=== PATIENT | female | born 1980 | race Caucasian/White ===

== ENCOUNTER 2017-05-18 13:52 | Emergency (ER) | payer MEDICAID ==
[2017-05-18 14:06] VITALS: BMI 33.1
[2017-05-18] MEDS ORDERED: Sodium Chloride 0.9% 1,000 ML IV ONE (14:33)
--- NOTE | 2017-05-18 14:38 | C.PDOC ---
History Of Present Illness 37 y/o female 10 weeks presents to ED with complaints of vomiting since 05/16/17. Patient states she cannot hold anything down and was seen at [facility] but symptoms have not improved which prompted visit to ED today. Patient denies vaginal bleeding, fever, chills, diarrhea or any other complaints at this time. Patient LMP 03/03/17. Time Seen by Provider: 05/18/17 14:20 Chief Complaint (Nursing): GI Problem History Per: Patient History/Exam Limitations: no limitations Onset/Duration Of Symptoms: Days Current Symptoms Are (Timing): Still Present Quality Of Discomfort: denies: Cramping Associated Symptoms: Vomiting. denies: Fever, Chills, Nausea, Urinary Symptoms Past Medical History Reviewed: Historical Data, Nursing Documentation, Vital Signs Vital Signs: Last Vital Signs Temp 98.3 F 05/18/17 16:21 Pulse 71 05/18/17 16:21 Resp 18 05/18/17 16:21 BP 96/65 L 05/18/17 16:21 Pulse Ox 99 05/18/17 16:21 - Medical History PMH: Migraine Family History: States: No Known Family Hx - Social History Hx Tobacco Use: No Hx Alcohol Use: No Hx Substance Use: No - Immunization History Hx Tetanus Toxoid Vaccination: No Hx Influenza Vaccination: No Hx Pneumococcal Vaccination: No Review Of Systems Except As Marked, All Systems Reviewed And Found Negative. Constitutional: Negative for: Fever, Chills Gastrointestinal: Positive for: Vomiting. Negative for: Nausea, Diarrhea Genitourinary: Negative for: Dysuria, Vaginal Bleeding Skin: Negative for: Rash Physical Exam - Physical Exam Appears: Non-toxic, No Acute Distress Skin: Normal Color, Warm Head: Normacephalic Oral Mucosa: Moist Cardiovascular: Rhythm Regular, No Murmur Respiratory: Normal Breath Sounds, No Rales, No Rhonchi, No Wheezing Gastrointestinal/Abdominal: Tenderness (Lower abdominal Tenderness), No Guarding , No Rebound Extremity: Normal ROM, Capillary Refill (<2 seconds) Neurological/Psych: Oriented x3 ED Course And Treatment - Laboratory Results Result Diagrams: 05/18/17 15:02 05/18/17 15:02 Lab Interpretation: Normal Urine POC: Positive O2 Sat by Pulse Oximetry: 100 (RA) Pulse Ox Interpretation: Normal - CT Scan/US No standard instances Other Rad Studies (CT/US): Read By Radiologist, Radiology Report Reviewed CT/US Interpretation: FINDINGS: UTERUS: Gestational sac: Single intrauterine gestation. Heart rate: 158 bpm. age (Ultrasound estimated): 11 weeks and 1 day. Poppy-gestational hemorrhage: None. Date of delivery ( Ultrasound estimated) : 12/06/2017. Uterus measures 13.6 x 0.9 x 9.7 cm. Anteverted an enlarged. CERVIX: Long and closed. No cervical abnormality seen. RIGHT OVARY: Measures 3.3 x 2.4 x 3.6 cm. No mass lesion. Normal flow. There is a 2.5 cm corpus luteum cyst. LEFT OVARY: Measures 2.5 x 2.6 x 2.8 cm. No solid mass. Normal flow. FREE FLUID: None. OTHER FINDINGS: None. IMPRESSION: Single live intrauterine gestation with mean gestational age of 11 weeks and 1 day. The estimated date of delivery by ultrasound is 12/06/2017. The ultrasound dates correspond with the clinical dates. Progress Note: Treated with IVF NSS and zofran. On re-evaluation feeling better , abdomen soft Reassessment Condition: Improved Medical Decision Making Medical Decision Making: Plan: * Fluids * Zofran Disposition Counseled Patient/Family Regarding: Studies Performed, Diagnosis, Need For Followup, Rx Given - Disposition Referrals: [facility] [employer] [Outside] Disposition: HOME/ ROUTINE Disposition Time: 16:30 Condition: IMPROVED Additional Instructions: follow up with clinic Return to ED if any increase symptoms Prescriptions: Ondansetron ODT [Zofran ODT] 1 odt PO BID PRN #6 odt PRN Reason: Nausea/Vomiting Instructions: Hyperemesis Gravidarum (ED) - POA Present On Arrival: None - Clinical Impression Clinical Impression: Hyperemesis affecting , antepartum - Scribe Statement The provider has reviewed the documentation as recorded by the Luis Rob All medical record entries made by the Luis were at my direction and personally dictated by me. I have reviewed the chart and agree that the record accurately reflects my personal performance of the history, physical exam, medical decision making, and the department course for this patient. I have also personally directed, reviewed, and agree with the discharge instructions and disposition.
[2017-05-18] MEDS ORDERED: Sodium Chloride 0.9% 1,000 ML ONE (14:47)
[2017-05-18 15:00] LABS: HCG,QUALITATIVE URINE POSITIVE (NEGATIVE)
[2017-05-18 15:02] LABS: SQUAMOUS EPITHIAL 5 /hpf (0-5); URINE BACTERIA OCC (<OCC); URINE BILIRUBIN NEGATIVE (NEGATIVE); URINE BLOOD NEGATIVE (NEGATIVE); URINE CLARITY Hazy (Clear); URINE COLOR YELLOW (YELLOW); URINE GLUCOSE (UA) NORMAL (Normal); URINE LEUKOCYTE ESTERASE 1+ Leu/uL (Negative); URINE NITRATE NEGATIVE (NEGATIVE); URINE PROTEIN 1+ mg/dL (NEGATIVE); URINE UROBILINOGEN NORMAL mg/dL (0.2-1.0)
[2017-05-18 15:14] LABS: BASO % 0.4 % (0.0-2.0); EOS % 0.5 % (0.0-4.0); HEMOGLOBIN 11.3 g/dL (11.0-16.0); LYMPH # 1.5 K/uL (1.0-4.3); LYMPH % 20.9 % (20.0-40.0); MEAN CORPUSCULAR HEMOGLOBIN 22.2 pg (27.0-31.0); MEAN CORPUSCULAR HGB CONC 31.7 g/dL (33.0-37.0); MEAN PLATELET VOLUME 7.7 fL (7.2-11.7); MONO # 0.5 K/uL (0.0-0.8); MONO % 7.3 % (0.0-10.0); NEUT # 5.2 K/uL (1.8-7.0); NEUT % 70.9 % (50.0-75.0); NRBC % 0.1 % (0.0-2.0); RBC 5.08 Mil/uL (3.80-5.20); RED CELL DISTRIBUTION WIDTH 17.3 % (11.5-14.5); WHITE BLOOD COUNT 7.3 K/uL (4.8-10.8)
[2017-05-18 15:41] LABS: ALBUMIN 4.2 g/dL (3.5-5.0)
[2017-05-18 15:43] LABS: GFR AFRICAN-AMERICAN > 60; GFR NON-AFRICAN AMERICAN > 60
[2017-05-18 15:44] LABS: ALT/SGPT 20 U/L (9-52); AST/SGOT 33 U/L (14-36); BLOOD UREA NITROGEN 10 mg/dL (7-17); LIPASE 73 U/L (23-300)
[2017-05-18 15:45] LABS: CALCIUM 9.1 mg/dl (8.6-10.4)
--- NOTE | 2017-05-18 16:03 | US ---
PROCEDURE: OB Pelvic Ultrasound HISTORY: bleeding COMPARISON: None available. FINDINGS: UTERUS: Gestational sac: Single intrauterine gestation. Heart rate: 158 bpm. age (Ultrasound estimated): 11 weeks and 1 day Poppy-gestational hemorrhage: None. Date of delivery (Ultrasound estimated) : 12/06/2017 Uterus measures 13.6 x 0.9 x 9.7 cm. Anteverted an enlarged. CERVIX: Long and closed. No cervical abnormality seen. RIGHT OVARY: Measures 3.3 x 2.4 x 3.6 cm. No mass lesion. Normal flow. There is a 2.5 cm corpus luteum cyst. LEFT OVARY: Measures 2.5 x 2.6 x 2.8 cm. No solid mass. Normal flow. FREE FLUID: None. OTHER FINDINGS: None. IMPRESSION: Single live intrauterine gestation with mean gestational age of 11 weeks and 1 day. The estimated date of delivery by ultrasound is 12/06/2017. The ultrasound dates correspond with the clinical dates.
[2017-05-18 16:22] VITALS: BP 96/65; PULSE 71; RESP 18; TEMP 98.3
[2017-05-18 18:08] VITALS: O2SAT 100
== END 2017-05-18 16:50 | disposition home or self-care (01) ==
LOC: C.ER 13:52
DX: O21.0 Mild hyperemesis gravidarum (principal); Z3A.10 10 weeks gestation of pregnancy
CPT/HCPCS: 76801; 80053; 81001; 83690; 84702; 84703; 85025; 86850; 86900; 96361; 96374; 99284; J2405; J7040

== ENCOUNTER 2017-10-12 09:58 | Emergency (ER) | payer OTHER ==
--- NOTE | 2017-10-12 11:01 | OBHP ---
Datetime: 10/12/2017 10:57 IP Adm Impression: , intrauterine IP Chief Complaint Other: nst Admit Comment, IP Provider: at 31+weeks send from clinic for nst for ??. pt was havimg ctxs on the monitor but doesnot feel them,vb, no lof,+fm. pt has not eaten anything. obhx 1 x , 2 x sab pmh den med pnv all nkda psh de soch de ve closed a/p at 31+weeks ctxs/nst npo/ivf ua cont violette and efm cont close onser Pelvic Type - PN: Adequate Extremities - PN: Normal Abdomen - PN: Normal Back - PN: Normal Breast - PN: Normal Lungs - PN: Normal Heart - PN: Normal Thyroid - PN: Normal Neurologic - PN: Normal HEENT - PN: Normal General - PN: Normal FHR - Baseline A Provider: 140 Contraction Comments Provider: irrg EGA AdmitDate IP: 31.6 Vital Signs Provider: Reviewed; Within Normal Limits IP Chief Complaint: Other NICHD Variability Prov Fetus A: Moderate 6-25bpm NICHD Accel Fetus A IP Provider: 15X15 FHR Category Provider Fetus A: Category I Dilatation, Provider: 0 Effacement, Provider: 0 Station, Provider: -3 Genitourinary Exam: Normal DTRs - PN: Normal
[2017-10-12 11:02] VITALS: BMI 34.1
[2017-10-12] MEDS ORDERED: Lactated Ringer's 1,000 ML IV SCH (11:15)
[2017-10-12 11:30] LABS: URINE BILIRUBIN NEGATIVE (NEGATIVE); URINE BLOOD NEGATIVE (NEGATIVE); URINE COLOR Yellow (YELLOW); URINE GLUCOSE (UA) NORMAL (Normal); URINE KETONE NEGATIVE (NEGATIVE); URINE LEUKOCYTE ESTERASE NEG Leu/uL (Negative); URINE PROTEIN NEGATIVE (NEGATIVE); URINE UROBILINOGEN NORMAL mg/dL (0.2-1.0)
[2017-10-12 11:46] LABS: URINE BACTERIA OCC (<OCC); WBC URINE 1 /hpf (0-5)
--- NOTE | 2017-10-12 12:08 | OBDCSUM ---
Datetime: 10/12/2017 12:06 Discharged to, Provider: Home Follow up at, Provider: 2-3 Follow up in weeks, Provider: clinic Discharge Comment, Provider: dc home no sex po hyra f/u in clinic in 2-3 days Discharge Diagnosis Prov Other: nst 31week prtm ctxs Datetime: 10/12/2017 12:00 Discharged to, Provider: Other Disch Instr Activity: Normal activity Disch Instr Diet: Regular Discharge Time: 10/12/2017 12:01 Disch Referrals: None
--- NOTE | 2017-10-12 12:08 | OBHP ---
Datetime: 10/12/2017 12:05 Admit Comment, IP Provider: pt was examined at bed side ve closed /p iv fluid ua neg plan dc home no sex po hyra f/u in clinic in 2-3 days FHR - Baseline A Provider: 150 Contraction Comments Provider: none Vital Signs Provider: Reviewed; Within Normal Limits NICHD Variability Prov Fetus A: Moderate 6-25bpm NICHD Accel Fetus A IP Provider: 10X10 FHR Category Provider Fetus A: Category I Dilatation, Provider: 0 Effacement, Provider: 0 Station, Provider: -3
[2017-10-12 16:07] VITALS: BP 116/69; PULSE 86
== END 2017-10-12 12:03 | disposition home or self-care (01) ==
LOC: C.EROB 09:58
DX: Z36.89 Encounter for other specified antenatal screening (principal); O60.03 Preterm labor without delivery, third trimester; Z3A.31 31 weeks gestation of pregnancy
CPT/HCPCS: 81001; 99283; J7120

== ENCOUNTER 2017-10-24 08:57 | Emergency (ER) | payer OTHER ==
[2017-10-24 09:47] VITALS: BMI 34.9
[2017-10-24 10:28] LABS: URINE BILIRUBIN NEGATIVE (NEGATIVE); URINE BLOOD NEGATIVE (NEGATIVE); URINE COLOR Yellow (YELLOW); URINE GLUCOSE (UA) NORMAL (Normal); URINE KETONE NEGATIVE (NEGATIVE); URINE LEUKOCYTE ESTERASE 1+ Leu/uL (Negative); URINE PROTEIN NEGATIVE (NEGATIVE); URINE UROBILINOGEN NORMAL mg/dL (0.2-1.0)
[2017-10-24 10:56] LABS: RBC URINE < 1 /hpf (0-3); URINE BACTERIA MOD (<OCC)
[2017-10-24 10:57] LABS: WBC URINE 15 /hpf (0-5)
[2017-10-24] MEDS ORDERED: Betamethasone Soluspan 30 mg/5mL Inj Susp IM STA ×2 (11:00)
[2017-10-24 20:24] VITALS: BP 113/69; PULSE 93; O2SAT 97
== END 2017-10-24 16:00 | disposition home or self-care (01) ==
LOC: C.EROB 08:57
DX: O26.899 Other specified pregnancy related conditions, unspecified trimester (principal); R10.30 Lower abdominal pain, unspecified
CPT/HCPCS: 81001; 99283; J0702; J3105

== ENCOUNTER 2017-10-25 12:30 | Emergency (ER) | payer OTHER ==
[2017-10-24 09:47] VITALS: BMI 34.9
[2017-10-25] MEDS ORDERED: Betamethasone Soluspan 30 mg/5mL Inj Susp IM ONE (13:00)
--- NOTE | 2017-10-25 21:42 | OBHP ---
Datetime: 10/25/2017 12:42 IP Chief Complaint Other: celestone IP Admit Plan: Discharge home Admit Comment, IP Provider: patient with contraction here for celestone and nst NST reactive give celestone 12 mg imx1 contineu decreased activity follow up in clinic next week patient given labor precautions Extremities - PN: Normal Abdomen - PN: Normal Back - PN: Normal Lungs - PN: Normal Heart - PN: Normal Neurologic - PN: Normal General - PN: Normal EGA AdmitDate IP: 33.5 Vital Signs Provider: Reviewed; Within Normal Limits IP Chief Complaint: Other FHR Category Provider Fetus A: Category I Datetime: 10/24/2017 21:15 IP Adm Impression: , intrauterine ; No Active Labor Pelvic Type - PN: Adequate Breast - PN: Not Done Thyroid - PN: Not Done HEENT - PN: Normal Presentation-Admit: Vertex FHR - Baseline A Provider: 145 Membranes, Provider: Intact Contraction Comments Provider: 4-5 Comments, ACOG Physical Exam: Abdomen: Gravid. Soft. Non tender in all quadrants All other systems reviewed and are negative Gestation - Est Wks by US: 33w 4d NICHD Variability Prov Fetus A: Moderate 6-25bpm NICHD Accel Fetus A IP Provider: 15X15 NICHD Decel Fetus A IP Provider: None Dilatation, Provider: 0 Effacement, Provider: 0 Station, Provider: high Genitourinary Exam: Normal DTRs - PN: Not Done
[2017-10-25 23:15] VITALS: BP 112/72; PULSE 88; RESP 20; TEMP 98.2; O2SAT 100
== END 2017-10-25 14:30 | disposition home or self-care (01) ==
LOC: C.EROB 12:30
DX: O47.03 False labor before 37 completed weeks of gestation, third trimester (principal); Z3A.33 33 weeks gestation of pregnancy
CPT/HCPCS: 99283; J0702

== ENCOUNTER 2017-11-30 09:25 | Emergency (ER) | payer OTHER ==
--- NOTE | 2017-11-30 09:26 | OBHP ---
Datetime: 10/25/2017 12:42 EGA AdmitDate IP: 33.5
[2017-11-30] MEDS ORDERED: Lactated Ringer's 1,000 ML IV ONE (09:44)
[2017-11-30] MEDS ORDERED: Dextrose 5%/Lactated Ringer's 1,000 ML IV SCH (10:00)
[2017-11-30 10:43] LABS: BASO % 0.2 % (0.0-2.0); EOS % 0.3 % (0.0-4.0); LYMPH # 0.6 K/uL (1.0-4.3); LYMPH % 7.7 % (20.0-40.0); MEAN CORPUSCULAR HEMOGLOBIN 20.6 pg (27.0-31.0); MEAN CORPUSCULAR HGB CONC 32.3 g/dL (33.0-37.0); MEAN PLATELET VOLUME 8.3 fL (7.2-11.7); MONO # 0.6 K/uL (0.0-0.8); MONO % 7.7 % (0.0-10.0); NEUT # 6.4 K/uL (1.8-7.0); NEUT % 84.1 % (50.0-75.0); RBC 4.46 Mil/uL (3.80-5.20); WHITE BLOOD COUNT 7.6 K/uL (4.8-10.8)
[2017-11-30 10:47] LABS: HEMOGLOBIN 9.2 g/dL (11.0-16.0)
[2017-11-30 10:48] LABS: MEAN CELL VOLUME 63.8 fL (81.0-99.0); PLATELET COUNT 217 K/uL (130-400)
[2017-11-30 10:53] LABS: ALBUMIN 3.2 g/dL (3.5-5.0); ALT/SGPT 18 U/L (9-52); AST/SGOT 23 U/L (14-36); BLOOD UREA NITROGEN 3 mg/dL (7-17); CALCIUM 8.4 mg/dl (8.6-10.4); GFR AFRICAN-AMERICAN > 60; GFR NON-AFRICAN AMERICAN > 60
[2017-11-30 10:55] LABS: ALB/GLOB RATIO 0.9 (1.0-2.1)
[2017-11-30 11:06] LABS: SQUAMOUS EPITHIAL 7 /hpf (0-5); URINE BACTERIA FEW (<OCC); URINE BILIRUBIN NEGATIVE (NEGATIVE); URINE BLOOD NEGATIVE (NEGATIVE); URINE CLARITY Hazy (Clear); URINE COLOR Yellow (YELLOW); URINE GLUCOSE (UA) 3+ mg/dL (Normal); URINE LEUKOCYTE ESTERASE TRACE Leu/uL (Negative); URINE NITRATE NEGATIVE (NEGATIVE); URINE PROTEIN NEGATIVE (NEGATIVE); URINE UROBILINOGEN NORMAL mg/dL (0.2-1.0)
[2017-11-30 11:46] LABS: ANISOCYTOSIS SLIGHT; BANDS 2 % (0-2); EOSINOPHIL 2 % (0-4); LYMPHOCYTE 9 % (20-40); MONOCYTE 10 % (0-10); NEUTROPHIL 77 % (50-75); PLATELET ESTIMATE NORMAL (NORMAL); TOTAL CELLS COUNTED 100
[2017-11-30 11:47] LABS: BURR CELLS SLIGHT; HYPOCHROMIC MODERATE; OVALOCYTES SLIGHT
--- NOTE | 2017-11-30 12:07 | OBHP ---
Datetime: 11/30/2017 09:47 IP Adm Impression: Term, intrauterine IP Chief Complaint Other: tachycardia in clinic Admit Comment, IP Provider: CC: Flu-like symptoms and contractions HPI: Patient is 37 year old at 38 weeks 6 days with CRYS (12/08/17) by US with LMP (03/04/2017 ), who presents to [facility] from the clinic due to flu-like symptoms. Patient reports she had a fever 100 last night with symptoms of shivering and body ache. Patient took tylenol 500mg PO BID at 6am. Patie nt also admits to contractions that were 30 minutes apart last night. Patient admits to leakage of fl uid, abnormal vaginal bleeding and abnormal vaginal discharge. 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 Stable 2. CEFM and TOCO 3. Tylenol 650mg PO once 4. D5LR bolus 5. Labs: Rapid flu test, CBC, CMP and UA 6. Plans discussed with attending Michelle De Jesus DO, pgy-1 dr chicas agrees Extremities - PN: Normal Abdomen - PN: Normal Lungs - PN: Normal Heart - PN: Normal General - PN: Normal FHR - Baseline A Provider: 170 Comments, ACOG Physical Exam: Gen: NAD Cardio: RRR, normal S1, S2 Pulm: CTA bilaterally Abdomen: Soft, non-tender, gravid Ext: No cyanosis, no clubbing and no cyanosis EFM: TOCO: Irregular FHR: Tachy, 170s, + accels Gestation - Est Wks by US: 38.6 Vital Signs Provider: Reviewed; Within Normal Limits NICHD Variability Prov Fetus A: Moderate 6-25bpm Dilatation, Provider: 0 Effacement, Provider: 0 Station, Provider: -3
--- NOTE | 2017-11-30 17:11 | US ---
OB limited/biophysical profile Comparison: 1st trimester ultrasound performed 05/18/17 Technique: Real-time ultrasound was performed through the pelvis. Findings: There is a single living fetus in cephalic presentation. Amniotic fluid volume measures approximately 17.3 cm, within normal limits. Anterior fundal placenta. The placenta is not previa. There are no adnexal masses or cysts evident. Cervix length measures approximately 3.4 cm. Measurements and calculations: Fetus has a composite sonographic age of 38 weeks 3 days. This calculation is based on the biparietal diameter, head circumference, abdominal circumference, and femur length. Estimated heart rate 152 beats per min. Estimated weight 3631 g 544.6 g Biophysical profile: movements 2/2 breathing 2/2 tone 2/2 Amniotic fluid 2/2 Total score impression: 06/14 Impression: Single living fetus with a composite sonographic age of 38 weeks 3 days. Estimated heart rate 152 beats per min. Biophysical profile of 8 out of 8.
--- NOTE | 2017-11-30 18:37 | OBHP ---
Datetime: 11/30/2017 18:31 Admit Comment, IP Provider: pt was seen at bed side. feels good, no ctxs,vb, lof+fm. ve closed nst 140 ctg i sono bpp 06/14 plan dc home labor ins given po hyration nst on tuesday f/u in 2 days FHR - Baseline A Provider: 140 Contraction Comments Provider: irrg Vital Signs Provider: Reviewed; Within Normal Limits NICHD Variability Prov Fetus A: Moderate 6-25bpm NICHD Accel Fetus A IP Provider: 15X15 FHR Category Provider Fetus A: Category I Dilatation, Provider: 0 Effacement, Provider: 0 Station, Provider: -3
--- NOTE | 2017-11-30 18:50 | OBDCSUM ---
Datetime: 11/30/2017 17:13 Discharged to, Provider: Home Follow up at, Provider: [facility] Disch Instr Activity: Normal activity Disch Instr Diet: Regular Discharge Time: 11/30/2017 17:20 Follow up in weeks, Provider: Tuesday12/04/17 for NST Disch Referrals: None Disch Activity Restrictions: No sexual activity; Nothing in vagina - [place], tampons, douche Discharge Comment, Provider: dc home labor ins given po hyration nst on tuesday f/u in 2 days Discharge Diagnosis Prov Other: 38week nst tachycardia
[2017-11-30 21:41] VITALS: BP 117/70; PULSE 100; RESP 18; TEMP 98.6; O2SAT 96
== END 2017-11-30 17:30 | disposition home or self-care (01) ==
LOC: C.EROB 09:25
DX: O26.893 Other specified pregnancy related conditions, third trimester (principal); J11.1 Influenza due to unidentified influenza virus with other respiratory manifestations; R00.0 Tachycardia, unspecified; O47.1 False labor at or after 37 completed weeks of gestation; Z3A.38 38 weeks gestation of pregnancy
CPT/HCPCS: 76815; 76818; 80053; 81001; 85025; 87804; 96360; 99282; J7120

== ENCOUNTER 2017-12-02 10:25 | Emergency (ER) | payer OTHER ==
[2017-12-02 15:52] VITALS: BP 114/72; PULSE 96; TEMP 98.8
--- NOTE | 2017-12-02 17:37 | OBHP ---
Datetime: 12/02/2017 11:25 Admit Comment, IP Provider: CC: NST HPI: Patient is 37 year old at 39 weeks with CRYS (12/08/17) by US with LMP (03/04/2017), who presents to [facility] for NST. Patient came to [facility] on 11/30 for cold symptoms and vaginal discharge/wetnes s and was told to come for NST today 12/02. Today patient says her cold symptoms are decreasing. She s till has congestion, cough, and sneezing. Her last elevated temperature was 100 F on 11/30. Patient is having no vaginal discharge or bleeding. Patient is feeling movement. Patient feels contractio ns about once an hour. Patient denies any nausea, vomiting, chest pain, or shortness of breath. 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 Afebrile, stable 2. NST reactive 3. Patient not in labor 4. Discharge patient with precautions of labor and advice to continue hydration 5. Discussed with attending Janet Luevano, PGY1 Attending Note: patient seen and evaluated with Resident. I agree with the above. NSt reactive/ Category 1 tracing. Plan: 1) as above. 2) F/U visit 12/07/17 as scheduled Extremities - PN: Normal Abdomen - PN: Normal Lungs - PN: Normal Heart - PN: Normal HEENT - PN: Normal General - PN: Normal Comments, ACOG Physical Exam: Abdomen: Gravid. Soft; non tender in all quadrants. Fundal height 42c m All other systems reviewed and are negative Vital Signs Provider: Reviewed Genitourinary Exam: Normal Datetime: 10/25/2017 12:42 EGA AdmitDate IP: 33.5
== END 2017-12-02 11:30 | disposition home or self-care (01) ==
LOC: C.EROB 10:25
DX: Z36.89 Encounter for other specified antenatal screening (principal)

== ENCOUNTER 2017-12-03 15:57 | Emergency (ER) | payer OTHER ==
--- NOTE | 2017-12-03 18:10 | OBHP ---
Datetime: 12/03/2017 16:34 IP Adm Impression: Term, intrauterine ; No Active Labor IP Chief Complaint Other: Cough, congestion, subjective fevers Admit Comment, IP Provider: Patient is 37 year old at 39 weeks 2 days with CRYS (12/08/17) by U S with LMP (03/04/2017) presents to [facility] for abdominal pain that started this morning. Abdominal pain i s constant in nature, describes it as pressure-like pain. Patient was recently seen for cold like sym ptoms. States she is still coughing, congested, and having subjective fevers. Endorses +FM, Denies VB or LOF. 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 Will discharge home with labor precautions. Discuss ed with Dr Angela Walter DO PGY-1. Attending Note: Pt seen and examined with Resident and I agree with the above. FHR - Baseline A Provider: 150 Contraction Comments Provider: irregular Comments, ACOG Physical Exam: VSS Gen: AAOx3 Abd: Soft, gravid Ext: No clubbing, cyanosis, edema SVE: 2-3/50/-3 EGA AdmitDate IP: 39.2 IP Chief Complaint: Uterine contractions; Decreased movement; Other NICHD Variability Prov Fetus A: Moderate 6-25bpm NICHD Accel Fetus A IP Provider: 15X15 FHR Category Provider Fetus A: Category I NICHD Decel Fetus A IP Provider: None Dilatation, Provider: 2-3 Effacement, Provider: 50 Station, Provider: -3
[2017-12-03 22:17] VITALS: BP 115/80; PULSE 99
== END 2017-12-03 18:15 | disposition home or self-care (01) ==
LOC: C.EROB 15:57
DX: O26.893 Other specified pregnancy related conditions, third trimester (principal); Z3A.39 39 weeks gestation of pregnancy; R10.9 Unspecified abdominal pain

== ENCOUNTER 2017-12-06 13:19 | Inpatient (IN) | payer OTHER ==
[2017-12-04 02:10] VITALS: BMI 36.6
[2017-12-06] MEDS ORDERED: Vancomycin 1 GM 1 GM/250 ML BAG IVPB ONE (13:57)
[2017-12-06] MEDS ORDERED: Oxytocin 30 UNIT 30 UNITS/500 ML BAG IV PRN (14:30)
[2017-12-06] MEDS ORDERED: Oxytocin 30 UNIT 30 UNITS/500 ML BAG IV ONE (14:33)
[2017-12-06 14:37] LABS: BLOOD UREA NITROGEN 7 mg/dL (7-17); GFR AFRICAN-AMERICAN > 60; GFR NON-AFRICAN AMERICAN > 60
[2017-12-06 14:38] LABS: ALB/GLOB RATIO 0.9 (1.0-2.1); ALBUMIN 2.9 g/dL (3.5-5.0); ALT/SGPT 26 U/L (9-52); AST/SGOT 24 U/L (14-36); CALCIUM 8.3 mg/dl (8.6-10.4)
--- NOTE | 2017-12-06 14:40 | OBADHP ---
Datetime: 12/06/2017 13:55 Admit Comment, IP Provider: CC: ruptured membrances HPI: Patient is a 37 year old at 39 weeks 6 days with CRYS (12/08/17) by US with LMP (), who went to her OBGYN today with Dr. Singh where her membranes ruptured. She was told to go to the Emergency Room immediately. Patient has been having contractions every hour and is feeling the b tremaine move. She rates her pain 6/10. She denies any vaginal bleeding. 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 Stable, afebrile 2. CEFM and TOCO 3. Admission labs- see orders 4. Anesthesia consult 5. Expectant management 6. Plans discussed with attending, Dr. Storm Luevano, PGY-1 OB attending ethel Rivera, assessment and plan 37 y/o at 39.5 wga with c/o rom.Patient denies vaginal bleeding O-VSS Afebrile Speuclum exam +kelsea; nitrazine and ferning positive A/P 37 y/o at 39.5wga with PROM.Early labor -admit -see prders -gbs negative 2.36 pm Patient re-examined.Cervix 2-/-2 A/P Patient with prom and early labor.gbs neg start pit -continue to monitor Extremities - PN: Normal Abdomen - PN: Normal Lungs - PN: Normal Heart - PN: Normal HEENT - PN: Normal General - PN: Normal Weight - Estimated: 3200 Presentation-Admit: Vertex Amniotic Fluid Color, Provider: Clear Contraction Comments Provider: irregular Gestation - Est Wks by US: 39.5 Pool Provider: Positive Nitrazine Provider: Positive Ferning Provider: Positive IP Hx Assessment: The History has been Reviewed and is Current Vital Signs Provider: Reviewed IP Chief Complaint: Uterine contractions; Suspected ruptured membranes FHR Category Provider Fetus A: Category I Dilatation, Provider: 2 Effacement, Provider: 50 Station, Provider: -2 EGA AdmitDate IP: 39.5 IP Adm Impression: Ruptured Membranes IP Admit Plan: Admit to unit; Initiate labor protocol Datetime: 12/03/2017 16:34 IP Chief Complaint Other: Cough, congestion, subjective fevers FHR - Baseline A Provider: 150 Comments, ACOG Physical Exam: VSS Gen: AAOx3 Abd: Soft, gravid Ext: No clubbing, cyanosis, edema SVE: 2-50/-3 NICHD Variability Prov Fetus A: Moderate 6-25bpm NICHD Accel Fetus A IP Provider: 15X15 NICHD Decel Fetus A IP Provider: None Datetime: 12/02/2017 11:25 Genitourinary Exam: Normal Datetime: 10/25/2017 12:42 Back - PN: Normal Neurologic - PN: Normal Datetime: 10/24/2017 21:15 Pelvic Type - PN: Adequate Breast - PN: Not Done Thyroid - PN: Not Done Membranes, Provider: Intact DTRs - PN: Not Done
[2017-12-06 15:10] LABS: BASO % 0.2 % (0.0-2.0); EOS % 0.6 % (0.0-4.0); HEMOGLOBIN 8.6 g/dL (11.0-16.0); LYMPH # 1.9 K/uL (1.0-4.3); LYMPH % 25.2 % (20.0-40.0); MEAN CELL VOLUME 63.3 fL (81.0-99.0); MEAN CORPUSCULAR HEMOGLOBIN 20.2 pg (27.0-31.0); MEAN CORPUSCULAR HGB CONC 31.9 g/dL (33.0-37.0); MEAN PLATELET VOLUME 8.6 fL (7.2-11.7); MONO # 0.5 K/uL (0.0-0.8); MONO % 6.6 % (0.0-10.0); NEUT % 67.4 % (50.0-75.0); NRBC % 0.1 % (0.0-2.0); RBC 4.25 Mil/uL (3.80-5.20); RED CELL DISTRIBUTION WIDTH 17.4 % (11.5-14.5); WHITE BLOOD COUNT 7.4 K/uL (4.8-10.8)
[2017-12-06] MEDS ORDERED: Fentanyl/Bupivacaine HCl 250 ML EPI ONE (15:28)
[2017-12-06] MEDS ORDERED: Lidocaine 2% Inj (20ml) ONE (21:59)
[2017-12-07] MEDS ORDERED: Sodium Citrate/Citric Acid 15 ml Sol PO ONE
--- NOTE | 2017-12-07 00:02 | OBPN ---
Datetime: 12/06/2017 23:58 IP Progress Note Comment: patient pushing formore than 30 min now head+1 with small amount of caput noted patient extremely exhausted an drequesting s csection 'discussed with patient about prolonged recovery with csection.risks of bleeidng, infection, adhes ions, injury to adjacent orans-bladder, bowel, ureter etc discussed in detail discussed with patient about benefits of vaginal delivery patient voiecs understanding julieta risks and desiresto proceed also requesting bilateral tubal ligation Vital Signs Provider: Reviewed Datetime: 12/06/2017 13:55 Pool Provider: Positive Nitrazine Provider: Positive Ferning Provider: Positive Amniotic Fluid Color, Provider: Clear Contraction Comments Provider: irregular Gestation - Est Wks by US: 39.5 Weight - Estimated: 3200 Presentation-Admit: Vertex FHR Category Provider Fetus A: Category I Dilatation, Provider: 2 Effacement, Provider: 50 Station, Provider: -2 Datetime: 12/03/2017 16:34 FHR - Baseline A Provider: 150 NICHD Accel Fetus A IP Provider: 15X15 NICHD Variability Prov Fetus A: Moderate 6-25bpm NICHD Decel Fetus A IP Provider: None Datetime: 10/24/2017 21:15 Membranes, Provider: Intact
[2017-12-07] MEDS ORDERED: Morphine 1 mg/ml preservative-free Inj(Duramorph) ONE (00:26)
[2017-12-07] MEDS ORDERED: Oxycodone/Acetaminophen 5/325 mg Tab PO PRN (00:33)
[2017-12-07] MEDS: Simethicone 80 mg Chewtab PO SCH ×4 (09:21→22:03)
--- NOTE | 2017-12-07 13:30 | OP ---
PROCEDURE DATE: 12/07/2017 PREOPERATIVE DIAGNOSES: 1. section on maternal request. 2. Multiparity, sterilization. POSTOPERATIVE DIAGNOSES: 1. section on maternal request. 2. Multiparity, sterilization. PROCEDURES PERFORMED: Primary section and bilateral tubal ligation. SURGEON: Ad Inman MD EXHIBITS MANAGER: Wilfredo Lechuga MD and Dr. Lisa Walter. Please note that the procedure required surgical assistants to assist with entry into the abdominal cavity, to assist with the delivery of the , to assist with the dissection, to assist with the closure of the abdominal wall. The surgical assistants were present and scrubbed for the entire duration of the procedure. TYPE OF ANESTHESIA: Spinal. ANESTHESIOLOGIST: Dr. Desai. COMPLICATIONS: None. ESTIMATED BLOOD LOSS: 800 mL. FINDINGS: Viable female infant in a vertex presentation with Apgars of 9 at 1 minute and 9 at 5 minutes of life. Normal-appearing uterus, tubes, and ovaries. 's weight is 8 pounds 15 ounces. SPECIMEN: Placenta and segment of right and left fallopian tube. PROCEDURE IN DETAIL: After informed consent was obtained, the patient was taken to the operating room and spinal anesthesia was administered by the anesthesia team. She was thereafter placed in dorsal supine position with a leftward tilt. She was then prepped and draped in the usual sterile manner. After it was confirmed that the patient had adequate anesthesia, Pfannenstiel skin incision was then made and carried down to the underlying layer of the fascia with the help of the Bovie. The fascia was then incised in the midline and incision extended laterally with the help of Bovie as well. The superior aspect of the fascial incision was then grasped with Kenia clamps to elevate it and the underlying rectus muscle was dissected off. Attention was then turned to the inferior aspect of the fascial incision, which in a similar fashion, was grasped with Ken[place] clamps to elevate it and the underlying rectus muscle was dissected off. The rectus muscle in the midline and the peritoneum was entered bluntly. The peritoneal incision was extended superiorly and inferiorly with good visualization of the bladder. The bladder blade was then inserted and the lower uterine segment was identified. A transverse incision was made over the vesicouterine peritoneum and this incision was extended laterally and a bladder flap was created sharply. The bladder blade was then reinserted and the lower uterine segment identified. A transverse incision was made over the lower uterine segment with the help of a scalpel. This incision was extended laterally and the bladder flap was created. The infant's head was then delivered atraumatically, the body and shoulders were delivered without any difficulty. The cord was then clamped and cut while the nose and the mouth were suctioned. The was handed over to the waiting recreation adviser. A segment of cord was taken for cord blood pH. The cord blood was then collected. The placenta was then manually removed and the uterus was exteriorized and cleared off all clots and debris. The uterine incision was repaired with 0 Polysorb in a running locked fashion. A second layer of 3-0 suture was used to imbricate the first layer and also to obtain hemostasis. Adequate hemostasis was noted from the uterine incision repair site. The right fallopian tube was thereafter grasped with Jenni clamp and the loop was formed using 2-0 plain. It was reinforced with another tie of 2-0 plain and the formed loop was resected and the cut ends were cauterized. Thereafter, tubal ligation was performed on the right side using [place] technique. Similar technique was repeated on the left side as well. Adequate hemostasis was noted from the site of the tubal ligation. At this point, uterus was returned to the patient's abdomen. The pelvis and the cul-de-sac were irrigated and suctioned. The bleeding was noted from the midsection of the uterine incision repair site, this was suture ligated using [id number] sutures of 3-0 Monocryl. Adequate hemostasis was now ensured from the uterine incision repair site as well as the site of tubal ligation. The bladder flap was inspected for hemostasis and adequate hemostasis was noted from it as well. The peritoneum was closed with 2-0 Polysorb in a running fashion. The muscle layer was reapproximated with 2-0 Polysorb in a continuous manner. The fascia was closed with 0 Vicryl in a running fashion. The subcutaneous tissue was reapproximated with 2-0 Polysorb and interrupted stitches. The skin was thereafter closed with 3-0 Monocryl in a subcuticular manner. The sponge, lap, needle, and instrument counts were correct as reported to me at the end of the procedure. The patient was thereafter cleaned, and taken to the recovery room in stable condition. The No catheter was left in situ for postop bladder drainage. Ad Inman MD
[2017-12-07] MEDS: Lactated Ringer's 1,000 ML IV SCH (14:03)
[2017-12-07] MEDS: Oxycodone/Acetaminophen 5/325 mg Tab PO PRN (20:28)
[2017-12-08] MEDS ORDERED: Bisacodyl 5mg EC Tab PO ONE ×3 (00:34→14:45)
[2017-12-08] MEDS: Oxycodone/Acetaminophen 5/325 mg Tab PO PRN ×3 (05:58→15:06)
[2017-12-08 07:40] LABS: BASO % 0.3 % (0.0-2.0); EOS % 0.4 % (0.0-4.0); HEMOGLOBIN 7.9 g/dL (11.0-16.0); LYMPH # 1.4 K/uL (1.0-4.3); LYMPH % 13.9 % (20.0-40.0); MEAN CELL VOLUME 63.1 fL (81.0-99.0); MEAN CORPUSCULAR HEMOGLOBIN 20.8 pg (27.0-31.0); MONO # 0.5 K/uL (0.0-0.8); NEUT # 7.8 K/uL (1.8-7.0); NEUT % 80.4 % (50.0-75.0); NRBC % 0.1 % (0.0-2.0); RBC 3.8 Mil/uL (3.80-5.20); RED CELL DISTRIBUTION WIDTH 17.3 % (11.5-14.5); WHITE BLOOD COUNT 9.8 K/uL (4.8-10.8)
[2017-12-08] MEDS: Simethicone 80 mg Chewtab PO SCH ×4 (09:24→21:29)
[2017-12-08] MEDS: Lactated Ringer's 1,000 ML IV SCH (12:00)
[2017-12-09] MEDS: Oxycodone/Acetaminophen 5/325 mg Tab PO PRN ×4 (00:08→18:20)
[2017-12-09] MEDS: Simethicone 80 mg Chewtab PO SCH ×4 (09:06→21:47)
[2017-12-10] MEDS ORDERED: Oxycodone/Acetaminophen 5/325 mg Tab PO PRN (02:54)
[2017-12-10 08:15] VITALS: BP 131/93; PULSE 82; RESP 18; TEMP 98.1; O2SAT 99
[2017-12-10] MEDS: Simethicone 80 mg Chewtab PO SCH (09:25)
[2017-12-10] MEDS ORDERED: Influenza Vaccine 60 mcg/0.5 mL SYR (4YR UP) IM ONE (09:30)
--- NOTE | 2017-12-10 13:00 | OBPPN ---
Datetime: 12/10/2017 12:59 PP Pain Prov: Within normal limits PP Nausea Prov: Denies PP Flatus Prov: Yes PP BM Prov: No PP Heart Prov: Normal PP Lungs Prov: Normal PP Abdomen/Uterus Prov: Normal PP Lochia Prov: Normal PP CVA Tenderness Prov: Normal PP Extremities Prov: Normal PP C/S Incision Prov: Normal PP Progress Prov: Normal PP Impression Prov: Normal progression PP Plan Prov: Discharge PP Progress Note Prov: S--patient denies any complaints.toelrating diet.ambulating and voiding witho ut difficulty.breast feeding. O-VSS Afebrile Abdomen gravid and nontender Extremities no calf tenderness incision clean, dry and intact A/P Ptaient s/p cscetion pod 3 doing well -discharge today -follow up in clinic in 1 week Vital Signs Provider PP: Reviewed; Within Normal Limits Datetime: 12/09/2017 09:17 PP Comments Phys Exam Prov: Abd: soft, mild generalized tenderness, fundus firm at 1 fingerbreath be low umbilicus, incision c/d/i
--- NOTE | 2017-12-10 13:03 | OBDCSUM ---
Datetime: 12/10/2017 10:42 Discharged to, Provider: Home Follow up at, Provider: Isamar Disch Instr Activity: May Shower Disch Instr Diet: Regular Discharge Diet restrict Prov: none Discharge Diagnosis, Provider: Term Delivered Discharge Time: 12/10/2017 12:00 Follow up in weeks, Provider: 1 week Disch Referrals: None Disch Activity Restrictions: No sexual activity; Nothing in vagina - [place], tampons, douche Discharge Comment, Provider: go toe r if you have fever, severe pain, heavy bleeidng or any other pr oblems Discharge Diagnosis Prov Other: s/p scection
--- NOTE | 2017-12-11 18:03 | OBPPN ---
Datetime: 12/08/2017 11:29 PP Comments Phys Exam Prov: Abdomen: soft, diffuse tenderness, incision covered by dressing - d/c/i PP Progress Note Prov: Patient seen and examined at bedside and in no acute distress. Patient says s he has lower abdominal pain which she rates 10/10 before medication and decreased to 8/10 after medic ation. She currently has a phillips and is having good urine output. She is passing gas, but denies havi ng a bowel movement. She is eating well and denies nausea and vomiting. Patient is breast and bottle feeding. Patient is having less bleeding and has gone through 2 pads in the past 24 hours. Patient de nies chest pain, shortness of breath, fevers, or chills. Labs: 9.8> 7.9/24< 214 Vitals: T: 97.8, BP: 108/70, P: 80, R 20 98% RA PE: Gen: AAOx3, NAD Cardio: RRR, +S1, S2 Pulm: clear to auscultation bilaterally Abdomen: soft, tender, incision with dressing c/d/i Ext: no edema, no clubbing, no cyanosis A_P: 37 y/o F s/p POD#1 1. Stable, afebrile 2. pain managed with Percocet and Motrin 3. encourage ambulation and hydration 4. encourage breast feeding 5. plans discussed with Dr. Suresh Luevano, PGY1 Attending Note (Late entry): patient was evaluated by me on 12/08/17. I agree with the above. NB: a bdominal tenderness is an appropriate post-op day#1 finding. Patient clinically stable.
--- NOTE | 2017-12-11 18:05 | OBPPN ---
Datetime: 12/09/2017 09:17 PP Progress Note Prov: Patient seen and examined at bedside and in no acute distress. Patient says s he has lower abdominal pain which she rates 9/10 before Percocet and decreased to 6/10 after Percocet . She is passing gas, but denies having a bowel movement. She is eating well and denies nausea and vo miting. Patient is bottle feeding and wants to try to pump more. Patient is urinating well and ambula ting. Patient states her bleeding is about the same as a regular period and she has gone through 2 pa ds. Patient denies chest pain, shortness of breath, fevers, or chills. Labs: 12/08/17: 9.8> 7.9/24< 214 Vitals: T: 97.1, BP: 129/88, P: 90, R 20 97% RA PE: Gen: AAOx3, NAD Cardio: RRR, +S1, S2 Pulm: clear to auscultation bilaterally Abdomen: soft, tender, fundus firm at 1 fingerbreath below umbilicus, incision c/d/i Ext: no edema, no clubbing, no cyanosis A_P: 37 y/o F s/p POD#2 1. Stable, afebrile 2. pain managed with Percocet and Motrin 3. encourage ambulation and hydration 4. encourage breast feeding 5. plans discussed with Dr. Suresh Luevano, PGY1 Attending Note (late entry): patient was evaluated by me. I agree with the above. Patient progres sing well. Anemia noted - asymptomatic and hemodynamically stable; on iron BID. Clinically stable.
== END 2017-12-10 11:26 | disposition home or self-care (01) | DRG 651 ==
LOC: C.EROB 13:19 → C.4D 13:51 → C.4M 12-07 04:30
PROVIDERS: ADMIT Student in an Organized Health Care Education/Training Program; ATTEND Student in an Organized Health Care Education/Training Program
PROC: 10D00Z1 Extraction of Products of Conception, Low, Open Approach (ICD-10-PCS; principal; 2017-12-07)
PROC: 0UB70ZZ Excision of Bilateral Fallopian Tubes, Open Approach (ICD-10-PCS; 2017-12-07)
DX: O42.92 Full-term premature rupture of membranes, unspecified as to length of time between rupture and onset of labor (principal); Z30.2 Encounter for sterilization; Z37.0 Single live birth; Z3A.39 39 weeks gestation of pregnancy; Z82.49 Family history of ischemic heart disease and other diseases of the circulatory system

== ENCOUNTER 2017-12-20 09:25 | Emergency (ER) | payer OTHER ==
[2017-12-20 09:26] VITALS: BMI 36.6
[2017-12-20 09:54] VITALS: BP 115/77; PULSE 94; RESP 18; TEMP 99; O2SAT 100
--- NOTE | 2017-12-20 10:59 | C.PDOC ---
History Of Present Illness 37 year old female presents to ED for evaluation of pain and redness at the c- section surgical site for the last 2 days. Pt is s/p on 12/07/17 here at [facility]. Pt states she noticed discharge from the wound this morning. Notes she is currently breast feeding. Pt admits to chills but denies fever, nausea, or vomiting. No other complaints. Time Seen by Provider: 12/20/17 09:56 Chief Complaint (Nursing): Abnormal Skin Integrity History Per: Patient History/Exam Limitations: no limitations Onset/Duration Of Symptoms: Days Current Symptoms Are (Timing): Still Present Location Of Injury: Anterior: Abdomen Quality Of Symptoms: Painful Additional History Per: Patient Past Medical History Reviewed: Historical Data, Nursing Documentation, Vital Signs Vital Signs: Last Vital Signs Temp 99 F 12/20/17 09:49 Pulse 94 H 12/20/17 09:49 Resp 18 12/20/17 09:49 BP 115/77 12/20/17 09:49 Pulse Ox 100 12/20/17 13:50 - Medical History PMH: Migraine Denies: Depression, Diabetes, HTN - [facility] Procedures EXCISION OF BILATERAL FALLOPIAN TUBES, OPEN APPROACH (12/06/17) EXTRACTION OF POC, LOW CERVICAL, OPEN APPROACH (12/06/17) Family History: States: Unknown Family Hx - Social History Hx Tobacco Use: No Hx Alcohol Use: No Hx Substance Use: No - Immunization History Hx Tetanus Toxoid Vaccination: No Hx Influenza Vaccination: No Hx Pneumococcal Vaccination: No Review Of Systems Except As Marked, All Systems Reviewed And Found Negative. Constitutional: Positive for: Chills. Negative for: Fever Gastrointestinal: Positive for: Abdominal Pain (pain and redness to site). Negative for: Nausea, Vomiting, Diarrhea Genitourinary: Negative for: Dysuria, Frequency Physical Exam - Physical Exam Appears: Non-toxic, No Acute Distress Skin: Warm, Dry Head: Normacephalic Eye(s): bilateral: Normal Inspection Oral Mucosa: Moist Cardiovascular: Rhythm Regular, No Murmur Respiratory: Normal Breath Sounds, No Rales, No Rhonchi, No Wheezing Gastrointestinal/Abdominal: Soft, Other (mild erythema and tenderness to the right side of surgical scar with 3cm of induration and clear serous discharge from wound, no fluctuance) Extremity: Normal ROM Neurological/Psych: Oriented x3, Normal Speech ED Course And Treatment O2 Sat by Pulse Oximetry: 100 (RA) Pulse Ox Interpretation: Normal Progress Note: Pt was given Clindamycin, and Tylenol. On re-eval, patient is resting comfortably, no acute distress, abdomen remains soft. Patient is being discharged home with instructions to follow up with PMD in 1-2 days for further evaluation. Return to ED if symptoms persist or worsen. Disposition Counseled Patient/Family Regarding: Diagnosis, Need For Followup, Rx Given - Disposition Referrals: Miguel Mueller MD [Staff Provider] - Disposition: HOME/ ROUTINE Disposition Time: 11:00 Condition: STABLE Additional Instructions: FOLLOW UP WITH YOUR WOOL PULLER IN 1-2 DAYS USE MEDICATION DIRECTED RETURN TO ER IMMEDIATELY IF SYMPTOMS WORSEN Prescriptions: Clindamycin [Cleocin] 300 mg PO TID #21 cap Instructions: Surgical Site Infections (ED) Forms: [employer] (Ugandan) Print Language: TAJIK - Clinical Impression Clinical Impression: Complication of section wound, Surgical wound infection - Scribe Statement The provider has reviewed the documentation as recorded by the Scribsanty Harris All medical record entries made by the Scribe were at my direction and personally dictated by me. I have reviewed the chart and agree that the record accurately reflects my personal performance of the history, physical exam, medical decision making, and the department course for this patient. I have also personally directed, reviewed, and agree with the discharge instructions and disposition.
== END 2017-12-20 11:31 | disposition home or self-care (01) ==
LOC: C.ER 09:25
DX: O86.0 Infection of obstetric surgical wound (principal)

== ENCOUNTER 2018-10-01 11:14 | Emergency (ER) | payer MEDICAID, OTHER ==
[2018-10-01 11:14] VITALS: BMI 36.6
[2018-10-01 11:35] VITALS: BP 112/74; PULSE 78; RESP 20; TEMP 98.5; O2SAT 98
--- NOTE | 2018-10-01 15:01 | RAD ---
Date of service: 10/01/2018 HISTORY: productive cough COMPARISON: No prior. TECHNIQUE: Chest PA and lateral FINDINGS: LUNGS: No active pulmonary disease. PLEURA: No significant pleural effusion identified. No pneumothorax apparent. CARDIOVASCULAR: No aortic atherosclerotic calcification present. Normal cardiac size. No pulmonary vascular congestion. OSSEOUS STRUCTURES: No significant abnormalities. VISUALIZED UPPER ABDOMEN: Normal. OTHER FINDINGS: None. IMPRESSION: No active disease.
--- NOTE | 2018-10-01 15:04 | C.PDOC ---
History Of Present Illness 38 year old female presents to the ED complaining of productive cough with yellow-greenish sputum for one week. Denies any fever, chills. shortness of breath, ear pain, throat pain, nausea, vomiting, diarrhea, urinary symptoms or any other complaints. Time Seen by Provider: 10/01/18 12:30 Chief Complaint (Nursing): Cough, Cold, Congestion History Per: Patient History/Exam Limitations: no limitations Onset/Duration Of Symptoms: Days Current Symptoms Are (Timing): Still Present Past Medical History Reviewed: Historical Data, Nursing Documentation, Vital Signs Vital Signs: Last Vital Signs Temp 98.5 F 10/01/18 11:31 Pulse 78 10/01/18 11:31 Resp 20 10/01/18 11:31 BP 112/74 10/01/18 11:31 Pulse Ox 98 10/01/18 11:31 - Medical History PMH: Anemia, Migraine Denies: Depression, Diabetes, HTN Surgical History: - [facility] Procedures EXCISION OF BILATERAL FALLOPIAN TUBES, OPEN APPROACH (12/06/17) EXTRACTION OF POC, LOW CERVICAL, OPEN APPROACH (12/06/17) Family History: States: No Known Family Hx - Social History Hx Tobacco Use: No Hx Alcohol Use: No Hx Substance Use: No - Immunization History Hx Tetanus Toxoid Vaccination: No Hx Influenza Vaccination: No Hx Pneumococcal Vaccination: No Review Of Systems Except As Marked, All Systems Reviewed And Found Negative. Constitutional: Negative for: Fever, Chills ENT: Negative for: Ear Pain, Throat Pain Respiratory: Positive for: Cough. Negative for: Shortness of Breath Gastrointestinal: Negative for: Nausea, Vomiting, Abdominal Pain, Diarrhea Genitourinary: Negative for: Dysuria, Hematuria Physical Exam - Physical Exam Appears: Non-toxic, No Acute Distress Skin: Warm, Dry Head: Normacephalic Eye(s): bilateral: Normal Inspection Oral Mucosa: Moist Tongue: Normal Appearing Lips: Normal Appearing Teeth: Normal Dentition Gingiva: Normal Appearing Throat: Normal, No Erythema, No Exudate Neck: Supple Chest: Symmetrical Cardiovascular: Rhythm Regular Respiratory: No Rales, No Rhonchi, No Wheezing Gastrointestinal/Abdominal: Soft, No Tenderness Extremity: Bilateral: Atraumatic, Normal Color And Temperature, Normal ROM Neurological/Psych: Oriented x3, Normal Speech Gait: Steady ED Course And Treatment O2 Sat by Pulse Oximetry: 98 (RA) Pulse Ox Interpretation: Normal - Other Rad CXR X-Ray: Viewed By Me, Read By Radiologist Interpretation: Accession No. : [id number]. Patient Name / ID : ORLANDO SUAREZ [facility] / [id number]. Exam Date : 10/01/2018 13:43:33 ( Approved ). Study Comment : Sex / Age : F / 38Y. Creator : Rodney Mclain MD. Dictator : Rodney Mclain MD. Insurance And Benefits Clerk : Vice Chairman : Rodney Mclain MD. Approver2 : Report Date : 10/01/2018 14:57:44. My Comment : . Date of service: 10/01/2018. HISTORY: productive cough. COMPARISON: No prior. TECHNIQUE: Chest PA and lateral. FINDINGS: LUNGS: No active pulmonary disease. PLEURA: No significant pleural effusion identified. No pneumothorax apparent. CARDIOVASCULAR: No aortic atherosclerotic calcification present. Normal cardiac size. No pulmonary vascular congestion. OSSEOUS STRUCTURES: No significant abnormalities. VISUALIZED UPPER ABDOMEN: Normal. OTHER FINDINGS: None. IMPRESSION: No active disease. Disposition - Disposition Referrals: Shaik Condon MD [Staff Provider] - Disposition: HOME/ ROUTINE Disposition Time: 15:01 Condition: STABLE Additional Instructions: Follow up with PMD within 1-2 days. Return to ED if feel worse. 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 - Scribe Statement The provider has reviewed the documentation as recorded by the Scribe Cassia Barahona All medical record entries made by the Scribe were at my direction and personally dictated by me. I have reviewed the chart and agree that the record accurately reflects my personal performance of the history, physical exam, medical decision making, and the department course for this patient. I have also personally directed, reviewed, and agree with the discharge instructions and disposition.
== END 2018-10-01 15:28 | disposition home or self-care (01) ==
LOC: C.ER 11:14
DX: J40 Bronchitis, not specified as acute or chronic (principal)